=== PATIENT | male | born 1995 | race Hispanic/Latino ===

== ENCOUNTER 2021-06-08 22:25 | Emergency (ER) | payer BC ==
[~2021-06-08] VITALS: Ht 170.2 cm; Wt 65.0 kg
[2021-06-08 23:25] LABS: IMMATURE GRANULOCYTES 0.2 % (0.0-5.0); MEAN CORPUSCULAR HGB 28.5 pG CALC (26.0-32.0); MEAN CORPUSCULAR HGB CONC 34.3 g/dL CAL (32.0-36.0); NEUT# 5.07 thou/uL (1.82-7.42); RED BLOOD COUNT 5.43 mill/uL (4.70-6.10); RED CELL DISTRI WIDTH 12.5 % (11.5-15.5)
[2021-06-08 23:26] LABS: HEMATOCRIT 45.2 % (39.0-50.0); HEMOGLOBIN 15.5 g/dl (14.0-18.0); MEAN CELL VOLUME 83.2 fL CALC (80.0-100.0)
[2021-06-08 23:41] LABS: ALBUMIN 4.9 g/dL (3.2-5.0); ALKALINE PHOSPHATASE 104 u/l (38-126); ANION GAP 19 (6-22 (CALC)); BILIRUBIN, TOTAL 0.7 mg/dL (0.0-1.4); BUN 13 mg/dL (9-20); BUN/CREATININE RATIO 14 (12-20 (CALC)); CARBON DIOXIDE 22 mmol/l (22-30); CHLORIDE 106 mmol/l (95-108); GFR > 60 ML/MIN (>=60 (CALC)); GFR FOR AFR.AMER. > 60 ML/MIN (>=60 (CALC)); SGOT/AST 27 u/l (17-59); SODIUM 143 mmol/l (137-146)
[2021-06-08 23:43] LABS: POTASSIUM 4.1 mmol/l (3.5-5.1)
[2021-06-08 23:43] LABS: URINE BILIRUBIN - DIPSTICK NEGATIVE (NEGATIVE); URINE BLOOD DIPSTICK NEGATIVE (NEGATIVE); URINE COLOR YELLOW; URINE GLUCOSE - DIPSTICK NEGATIVE (NEGATIVE); URINE KETONE NEGATIVE (NEGATIVE); URINE LEUK ESTERASE NEGATIVE (NEGATIVE); URINE PROTEIN - DIPSTICK NEGATIVE (NEG-TRACE); URINE SPECIFIC GRAVITY <=1.005; URINE UROBILINOGEN - DIPSTICK 0.2 E.U./dL (0.2)
[2021-06-08 23:46] LABS: URINE NITRITE - DIPSTICK NEGATIVE (Negative)
[2021-06-09 00:03] LABS: MYOGLOBIN 20 ng/mL (0 - 121)
[2021-06-09] MEDS ORDERED: NAPROXEN500 MG PO (00:39)
[2021-06-09 00:52] VITALS: BP 127/68
== END 2021-06-09 01:09 | disposition home or self-care (01) | DRG 897 ==
LOC: ED 22:25
PROVIDERS: Emergency Medicine
DX: F10.180 Alcohol abuse with alcohol-induced anxiety disorder (principal); G44.009 Cluster headache syndrome, unspecified, not intractable; Z86.16 Personal history of COVID-19; Z20.822 Contact with and (suspected) exposure to COVID-19
CPT/HCPCS: J2060